=== PATIENT | female | born 1940 | race Caucasian/White ===

== ENCOUNTER 2017-07-19 19:15 | Observation (INO) ==
[2017-07-19] MEDS ORDERED: NS 500 ML IV ONE (20:30)
[2017-07-19] MEDS ORDERED: SALINE FLUSH 10ml SYRINGE IVF PRN (20:30)
--- NOTE | 2017-07-19 21:22 | Emergency Department Report ---
Asthma HPI - General Chief Complaint: Weakness Stated Complaint: dizzy/light headed Time Seen by Provider: 07/19/17 20:30 Source: patient, RN notes reviewed, old records reviewed Mode of arrival: ambulatory Limitations: no limitations - History of Present Illness HPI Narrative: 76yo woman presents to the ER for dizziness. Pt has had these sx previously; she was dx'ed with anemia at that time. Pt was admitted to this facility one week ago and given a blood transfusion; this helped her sx. Pt has had a thorough work up since then; pt has an RCC. She is set up for a partial nephrectomy in 4 days. complaint: other (dizziness) Onset (ago): day(s) Severity: similar to prior Context: other (RCC and prior anemia) - Related Data Home Medications Medication Instructions Recorded Confirmed Lisinopril 30 mg PO DAILY #0 03/10/16 07/19/17 Loratadine [Claritin] 10 mg PO DAILY PRN 05/31/17 07/19/17 Metformin [Glucophage] 500 mg PO DAILY 05/31/17 07/19/17 Pravastatin [Pravachol] 40 mg PO HS 05/31/17 07/19/17 Melatonin Tab [Melatonin] 1 tab PO HS PRN 06/01/17 07/19/17 Amlodipine Besylate [Norvasc] 5 mg PO QDRHS 07/13/17 07/19/17 Previous Rx's Medication Instructions Recorded Ascorbic Acid [Vitamin C] 500 mg PO WB tab 06/01/17 Ferrous Sulfate [Feosol] 324 mg PO WB tab 06/01/17 Prochlorperazine Maleate 10 mg PO Q6-8HR PRN #30 tab 07/13/17 [Compazine] Allergies Allergy/AdvReac Type Severity Reaction Status Date / Time codeine Allergy Intermediate ITCHING Verified 07/19/17 20:30 Review of Systems All systems: reviewed and negative except as stated Constitutional: Reports: as per HPI, weakness. Denies: fever, chills, weight change, night sweats Genitourinary: Reports: as per HPI, hematuria. Denies: urgency, dysuria, frequency, discharge, abnormal menses, dyspareunia, genital lesions PFS Patient Stated Medical History Cerebrovascular Accident No Paralysis No Seizures No Syncope No Hypertension Yes Asthma No Bronchitis No Chronic Obstructive Pulmonary No Disease (COPD) Pneumonia No Pulmonary Edema No Pulmonary Embolism No Sleep Apnea No Tuberculosis No Other Respiratory No Diabetes Mellitus Type 2 Yes: oral med controlled Gastroesophageal Reflux Yes: takes med prn Disease Ulcer Yes Other Yes: KIDNEY CA Anemia Yes Osteoarthritis No Other Musculoskeletal Yes: raynauds Blood Transfusions Yes: no reaction Other Yes: anemia currently Depression No Infertility Yes Post Menopausal Yes Other Reproductive Yes: post-menopausal bleeding-[facility] Medical History (Last Updated 06/16/17 @ 12:01 by Beryl Tovar APRN) Diabetes (Acute Medical) HTN (hypertension) (Acute Medical) Iron deficiency anemia (Acute Medical) Medical History Updates: Hypertension. Type 2 Diabetes. Hypercholesterolemia. ? GERD Surgical History: Exploratory Laparoscopic at age 37- Due to fertility problems. -hysterscope D&C 06/01/2017 Family History: Family History (Last Updated 06/16/17 @ 12:09 by Beryl Tovar APRN) Mother Heart failure High blood pressure Diabetes Son Cancer of prostate Father High blood pressure Heart failure Family History Updates: Father-heart disease, hypertension. Mother-heart disease, diabetes, hypertension. Sister-diabetes - Social History Smoking status: Never smoker Substance use type: does not use Alcohol intake frequency: does not drink Housing: house Current occupational status: retired Current residence: Apartment/Private Home Physical Exam - Limitations Limitations: no limitations - General General appearance: alert, in no apparent distress - Normal Exams: Head:: Normocephalic without trauma Eyes:: Pupils are PERRLA w/ EOMI, No scleral icterus, irritation, or foreign bodies noted ENMT:: No facial trauma, nasal exudates, pharyngeal erythema, or exudates are noted Neck:: Full range of motion, without adenopathy Chest/Respirations:: Clear all munoz, with good airflow, and symmetry bilaterally Cardiovascular:: Regular rate and rhythm, without murmur or gallop, Pulses 2+ all extremities Abdomen:: Bowel sounds positive, soft, non-tender, non-distended, no hepatosplenomegaly Lymphatic:: No lymphadenopathy Musculoskeletal:: No tenderness, or deformity noted Integumentary:: No rashes, hives, or bruising noted Neurological:: Patient is alert, and oriented Psychiatric:: Patient exhibits, appropriate attention - Skin Skin exam: Present: pallor Course - Consultations Consultation #1: Eduardo Telemed: Will admit for obs and transfusion. Time: 22:19 Vital Signs Temperature 98 F 07/19/17 19:18 Pulse Rate 95 07/19/17 19:18 Respiratory Rate 20 07/19/17 19:18 Blood Pressure 140/60 H 07/19/17 19:18 Pulse Oximetry 98 07/19/17 19:18 Temperature 98 F 07/19/17 19:18 Pulse Rate 81 07/19/17 21:00 Respiratory Rate 17 07/19/17 21:00 Blood Pressure 147/59 H 07/19/17 21:00 Pulse Oximetry 100 07/19/17 21:00 Dyspnea - MDM Narrative Medical decision making narrative: Pt with recurrent anemia. Will admit for obs and transfusion, in anticipation of surgery to correct her blood loss. - Differential Diagnosis Differential diagnosis: Likely: Pneumonia, COPD exacerbation, Foreign body in trachea (Anemia) - Medical Records Attestation: I reviewed the patient's medical records. - Lab Data Attestation: I reviewed the patient's lab results. Result diagrams: 07/20/17 06:03 07/20/17 06:03 Lab Results 07/19/17 07/19/17 07/19/17 Range/Units 20:43 20:43 20:53 WBC 13.7 H (4.5-11.0) T/MM3 RBC 3.46 L (4.00-5.20) M/MM3 Hgb 7.5 L (12-16) GM/DL Hct 24.4 L (36-46) % MCV 70.5 L (80-100) UM3 MCH 21.7 L (26-34) UUG MCHC 30.7 L (31-37) GM/DL RDW Std Deviation 46.1 (36.9-50.2) FL Plt Count 548 H (130-400) T/MM3 MPV 9.0 L (9.4-12.4) UM3 Immature Gran % (Auto) 0.3 (0.0-0.5) % Neut % (Auto) 76.1 H (33-66) % Lymph % (Auto) 14.7 L (23-45) % [place] % (Auto) 7.5 (0-9.0) % Eos % (Auto) 1.2 (0-4) % Baso % (Auto) 0.2 (0-2) % Neut # (Auto) 10.4 H (1.8-7.7) T/MM3 Lymph # (Auto) 2.0 (1-4.8) T/MM3 [place] # (Auto) 1.0 H (0-0.8) T/MM3 Eos # (Auto) 0.2 (0-0.5) T/MM3 Baso # (Auto) 0.0 (0-0.2) T/MM3 Abs Immat Gran (auto) 0.04 H (0.00-0.03) T/MM3 Turbidity < 20 (0-20) Sodium 137 (134-144) MEQ/L Potassium 4.9 (3.6-5) MEQ/L Chloride 100 (98-107) MEQ/L Carbon Dioxide 21 L (22-30) MEQ/L Anion Gap 16 H (5-15) meq/L BUN 38.0 H (7-17) MG/DL Creatinine 1.4 H (0.7-1.2) mg/dL GFR Calculation 37 BUN/Creatinine Ratio 27 H (6-26) RATIO Glucose 132 H (65-110) MG/DL Calculated Osmolality 275 (261-280) MOSM/KG Calcium 9.7 (8.4-10.2) MG/DL Icterus Index < 2 (0-7) Troponin I < 0.012 (0-0.12) ng/ml Specimen Hemolysis 37 H (0-25) Ur Collection Type Urine, void-cc/notcc Urine Color Yellow (YELLOW) Urine Clarity Clear Urine pH 5.5 (5.0-8.0) Ur Specific [place] 1.015 (1.015-1.025) Urine Protein Negative (NEGATIVE) Urine Glucose (UA) Negative (NEGATIVE) Urine Ketones Negative (NEGATIVE) Urine Occult Blood 3+ A (NEGATIVE) Urine Nitrate Negative (NEGATIVE) Urine Bilirubin Negative (NEGATIVE) Urine Urobilinogen 0.2 (NORMAL) EU/DL Ur Leukocyte Esterase Trace A (NEGATIVE) Urine RBC 5-10 H (0-3) /HPF Urine WBC 3-5 (0-5) /HPF Urine Bacteria 1+ H (NEGATIVE) Hyaline Casts 0-1 /LPF Ur Culture Indicated? Cult not indicated - Radiology Data Attestation: I reviewed the patient's radiology results. CXR: No acute CT pathology. CT Renal (July 09): Findings: The lung bases are grossly clear. Noncontrast images show no evidence of right-sided renal stone disease. There are multiple calcifications seen within the upper pole of the left kidney. The left kidney is significantly distorted with the upper half of the kidney replaced by a large heterogeneously enhancing centrally necrotic mass measuring 13.7 cm craniocaudally, 10.7 cm transversely and 10.4 cm anteroposteriorly. No obvious tumor invasion into the left renal vein. Postcontrast images show no enhancing bladder or right-sided renal masses. The liver enhances normally. No liver mass or bile duct dilatation. The gallbladder is contracted. The spleen, pancreas and adrenal glands are within normal limits. Mild motion artifact on the postcontrast sequence. No pathologic mesenteric or retroperitoneal lymphadenopathy appreciated. There are small left periaortic nodes. The largest on axial image #41 measures 0.6 cm in short axis. Uterus and ovaries are unremarkable. No free fluid. No bowel obstruction. There is some soft tissue stranding in the left paracolic gutter and splenic flexure of the colon that is most likely related to the large tumor. Bone windows show no discrete lytic or blastic osseous lesions. Delayed postcontrast images show excretion of contrast from both renal collecting systems. No definite ureteral or bladder filling defects. Impression: Very large left renal mass measuring over 13 cm in size most likely representing a renal cell carcinoma. Urothelial cell carcinoma is the other consideration. Disposition Clinical Impression: Anemia Qualifiers: Anemia type: iron deficiency Iron deficiency anemia type: chronic blood loss Qualified Code(s): D50.0 - Iron deficiency anemia secondary to blood loss ( chronic) Disposition: 02 To [facility] [place] Condition: Stable - Seen By: physician
[2017-07-19] MEDS ORDERED: ONDANSETRON 4 MG/2 ML INJECTION IVP PRN (23:06)
[2017-07-19] MEDS ORDERED: INSULIN ASPART 100unit/ml INJECTION SQ PRN (23:06)
[2017-07-19] MEDS ORDERED: AMLODIPINE 5 MG TABLET PO SCH (23:06)
[2017-07-19] MEDS ORDERED: ACETAMINOPHEN 325 MG TABLET PO PRN (23:06)
[2017-07-19] MEDS ORDERED: NS FLUSH BAG 500ml IV PRN (23:06)
[2017-07-19] MEDS ORDERED: MORPHINE SULFATE 4mg INJECTION IVP PRN (23:06)
[2017-07-19 23:14] VITALS: BMI 26.4
[2017-07-19] MEDS: D5-1/2NS 1,000 ML IV SCH (23:31)
--- NOTE | 2017-07-20 02:09 | History & Physical Report ---
History of Present Illness Date: 07/20/17 Chief complaint: weak and dizzi HPI: This is a 76 y/o female with recent diagnosis of renal cell carcinoma who is scheduled for a partial nephrectomy in [place] this coming Wednesday. The patient has had ongoing problems with anemia. Apparently transfused 1 month ago. The patient has increased weakness and fatigue and presents to the ED tonight for evaluation. In the ED her Hg is discovered to have dropped to 7.5. Given her sx it was decided to admit and tx one unit of blood. Additionally the pateint would appear to have a mild UTI based on UA results. Review of Systems Review of systems: no headache, no change in vision, no fever, chills or sweats, profound weakness and dizziness with any activity, no chest pain, cough is at times productive clear sputum, no abdomen pain, no nausea/vomiting, bowel movments normal without blood, no increased edema to legs, no focal neuro complaints. 12 point ROS otherwise negative except for outlined above. Past Medical History Medical History: Medical History (Last Updated 06/16/17 @ 12:01 by Beryl Tovar APRN) Diabetes HTN (hypertension) Iron deficiency anemia Medical History Updates: Hypertension. Type 2 Diabetes. Hypercholesterolemia. ? GERD. renal cell carcinoma Surgical History: Exploratory Laparoscopic at age 37- Due to fertility problems. 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 Current residence: Apartment/Private Home Medications Home Medications Medication Instructions Recorded Confirmed Type Lisinopril 30 mg PO DAILY #0 03/10/16 07/19/17 History Loratadine [Claritin] 10 mg PO DAILY PRN 05/31/17 07/19/17 History Metformin [Glucophage] 500 mg PO DAILY 05/31/17 07/19/17 History Pravastatin [Pravachol] 40 mg PO HS 05/31/17 07/19/17 History Ascorbic Acid [Vitamin C] 500 mg PO WB tab 06/01/17 07/19/17 Rx Ferrous Sulfate [Feosol] 324 mg PO WB tab 06/01/17 07/19/17 Rx Melatonin Tab [Melatonin] 1 tab PO HS PRN 06/01/17 07/19/17 History Amlodipine Besylate [Norvasc] 5 mg PO QDRHS 07/13/17 07/19/17 History Prochlorperazine Maleate 10 mg PO Q6-8HR PRN #30 tab 07/13/17 07/19/17 Rx [Compazine] Allergies Allergy/AdvReac Type Severity Reaction Status Date / Time codeine Allergy Intermediate ITCHING Verified 07/19/17 20:30 Exam Vital Signs: Temperature 96.6 F L 07/19/17 23:10 Pulse Rate 85 07/19/17 23:10 Respiratory Rate 12 07/19/17 23:10 Blood Pressure 134/59 07/19/17 23:10 Pulse Oximetry 98 07/19/17 23:10 Telemetry Rhythm: Sinus Rhythm Height/Weight/BMI: Height 1.65 m Weight 71.9 kg Body Mass Index 26.4 - Constitutional Present: mild distress, well nourished, well developed, average body habitus, cooperative - Routine HEENT Exam Head: Present: normocephalic, atraumatic Eye: Present: EOMI ENT: Present: mucous membranes dry - Routine Neck Exam Present: supple - Routine Respiratory Exam Present: CTA bilaterally - Routine Cardiovascular Exam Present: RRR, no murmur - Routine Abdominal Exam Present: soft, normoactive bowel sounds, non distended, non tender - Routine Extremities Exam Present: no edema - Routine Back/Spine/Pelvis Exam Back/Spine: Present: full ROM - Routine Skin Exam Present: intact, dry - Routine Neurological Exam Present: alert, oriented X3, CN II-XII intact, moving all extremities, normal tone, normal speech. Absent: motor deficit - Routine Psychiatric Exam Present: normal affect, normal thought process Results - Labs CBC & Chem 7: 07/19/17 20:43 07/19/17 20:43 Labs: reviewed and will be discussed below EKG: sinus without ischemic changes pCXR with atelectasis right base Assessment and Plan (1) Anemia Current visit: Yes Status: Acute (2) Renal cell carcinoma Current visit: Yes Status: Acute (3) CKD stage 3 secondary to diabetes Current visit: Yes Status: Acute (4) DM type 2 (diabetes mellitus, type 2) Current visit: Yes Status: Acute (5) UTI (urinary tract infection) Current visit: Yes Status: Acute Assessment and Plan: 1. anemia acute POA: secondary to ongoing hematuria, renal ds. patient is symptomatic with weakness and dizziness. Similar sx were tx in the past. 1 unit only 2. UTI acute POA: rocephpin, adjust for cx results 3. renal cell carcinoma acute POA: scheduled for surgery Wednesday 4. DM2 chronic POA: correction plan 5. CKD3 present on admission: fluids and follow labs 6. DVT ppx; SCD, DVT Prophylaxis: SCD's Resuscitation Status: Full Code - Time spent with patient Time with patient PN: 35 minutes - Physician Narrative Physician: Beverley Sol MD Narrative: Date: 07/20/17 Time: 0206 Hospital Course Summary Disclaimer: The visit summary below is not to be considered part of the above Progress Note.
[2017-07-20 07:17] VITALS: BP 122/51; PULSE 77; RESP 18; TEMP 98; O2SAT 99
--- NOTE | 2017-07-20 07:27 | XRay Report ---
Indication: Dyspnea PROCEDURE: XR chest 1V: Encounter: Initial Comparison: None FINDINGS: The lungs are clear. There is no abnormal airspace opacity, pleural effusion or pneumothorax identified. The heart size, pulmonary vasculature and mediastinum are within normal limits. No significant skeletal abnormality is seen. IMPRESSION: No acute cardiopulmonary abnormality. .
[2017-07-20] MEDS ORDERED: AMLODIPINE 5 MG TABLET PO SCH ×2 (09:00→21:00)
[2017-07-20] MEDS ORDERED: POLYETHYL GLYCOL 3350 17gm PACKET PO SCH (09:00)
[2017-07-20] MEDS ORDERED: LISINOPRIL 30 MG TABLET PO SCH (09:00)
[2017-07-20] MEDS ORDERED: CEFTRIAXONE 1 G in NS 100 ML IV SCH (09:00)
[2017-07-20] MEDS: D5-1/2NS 1,000 ML IV SCH (10:19)
--- NOTE | 2017-07-20 13:30 | Internal Med History&Physical ---
Internal Medicine HPI History of present illness: came in overnight d/t fatigue and dizziness. Pt reports she has had those sx's for a few months now but they got a little worse. Pt has had been having her anemia work up for the last few months and has gone through multiple specialists and procedures and it was finally figured out as hematuria caused by RCC. Pt has surgery this week and has a pre-op apt tomorrow and pt would really like to go home. Pt reports she has had a transfusion about a month ago when her Hgb dropped to around 6.5 but than she had been doing okay. Currently pt feels good and reports she's back to baseline after the transfusion. Pt denies any f/c, cp or sob. Denies any urinary sx's. Please see previous H&P for complete H&P HPI from overnight: This is a 76 y/o female with recent diagnosis of renal cell carcinoma who is scheduled for a partial nephrectomy in [place] this coming Wednesday. The patient has had ongoing problems with anemia. Apparently transfused 1 month ago. The patient has increased weakness and fatigue and presents to the ED tonight for evaluation. In the ED her Hg is discovered to have dropped to 7.5. Given her sx it was decided to admit and tx one unit of blood. Additionally the pateint would appear to have a mild UTI based on UA results. Review of Systems Review of systems: 10 point ros negative other than what is noted in HPI PFSH Patient Stated Medical History Cerebrovascular Accident No Hypertension Yes Sleep Apnea No Diabetes Mellitus Type 2 Yes: oral med controlled Gastroesophageal Reflux Yes: takes med prn Disease Ulcer Yes Other Yes: KIDNEY CA Anemia Yes Other Musculoskeletal Yes: raynauds Blood Transfusions Yes: no reaction Other Yes: anemia currently Depression No Infertility Yes Post Menopausal Yes Other Reproductive Yes: post-menopausal [facility] Medical History (Last Updated 06/16/17 @ 12:01 by Beryl Tovar APRN) Diabetes (Acute Medical) HTN (hypertension) (Acute Medical) Iron deficiency anemia (Acute Medical) Medical History Updates: Hypertension. Type 2 Diabetes. Hypercholesterolemia. ? GERD. renal cell carcinoma Surgical History: Exploratory Laparoscopic at age 37- Due to fertility problems. -hysterscope D&C 06/01/2017 Family History: Family History (Last Updated 06/16/17 @ 12:09 by Beryl Tovar APRN) Mother Heart failure High blood pressure Diabetes Son Cancer of prostate Father High blood pressure Heart failure Family History Updates: Father-heart disease, hypertension. Mother-heart disease, diabetes, hypertension. 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 Current residence: Apartment/Private Home Medications Home Medications Medication Instructions Recorded Confirmed Type Lisinopril 30 mg PO DAILY #0 03/10/16 07/19/17 History Loratadine [Claritin] 10 mg PO DAILY PRN 05/31/17 07/19/17 History Metformin [Glucophage] 500 mg PO DAILY 05/31/17 07/19/17 History Pravastatin [Pravachol] 40 mg PO HS 05/31/17 07/19/17 History Ascorbic Acid [Vitamin C] 500 mg PO WB tab 06/01/17 07/19/17 Rx Ferrous Sulfate [Feosol] 324 mg PO WB tab 06/01/17 07/19/17 Rx Melatonin Tab [Melatonin] 1 tab PO HS PRN 06/01/17 07/19/17 History Amlodipine Besylate [Norvasc] 5 mg PO QDRHS 07/13/17 07/19/17 History Prochlorperazine Maleate 10 mg PO Q6-8HR PRN #30 tab 07/13/17 07/19/17 Rx [Compazine] Allergies Allergy/AdvReac Type Severity Reaction Status Date / Time codeine Allergy Intermediate ITCHING Verified 07/19/17 20:30 Exam Vital signs: Temperature 98.0 F 07/20/17 07:00 Pulse Rate 77 07/20/17 08:05 Respiratory Rate 18 07/20/17 07:00 Blood Pressure 122/51 07/20/17 07:00 Pulse Oximetry 99 07/20/17 07:00 - Constitutional no acute distress - Routine HEENT Exam Head: Present: normocephalic, atraumatic - Routine Respiratory Exam Present: CTA bilaterally. Absent: wheezes - Routine Cardiovascular Exam Present: RRR, no murmur - Routine Abdominal Exam Present: soft, normoactive bowel sounds - Routine Extremities Exam Present: no edema. Absent: cyanosis, clubbing - Routine Skin Exam Present: intact, dry. Absent: cyanosis, erythema - Routine Neurological Exam Present: alert, oriented X3 - Routine Psychiatric Exam Present: normal affect, normal thought process Internal Medicine Results - Labs CBC & Chem 7: 07/20/17 06:03 07/20/17 06:03 Labs: Short CBC 07/20/17 Range/Units 06:03 WBC 12.0 H (4.5-11.0) T/MM3 Hgb 8.9 L D (12-16) GM/DL Hct 27.9 L D (36-46) % Plt Count 538 H (130-400) T/MM3 BMP 07/20/17 06:03 Sodium 141 Potassium 4.6 Chloride 104 Carbon Dioxide 24 BUN 28.0 H Creatinine 1.2 D Glucose 145 H Calcium 9.8 Assessment and Plan - Assessment and Plan (1) Anemia Current visit: Yes Status: Acute (2) Renal cell carcinoma Current visit: Yes Status: Acute (3) CKD stage 3 secondary to diabetes Current visit: Yes Status: Acute (4) DM type 2 (diabetes mellitus, type 2) Current visit: Yes Status: Acute - Assessment and Plan Chronic Anemia 2/2 Hematuria 2/2 RCC -Hgb improved after transfusion -Pt has surgery later this week for RCC RCC -Surgery this Wednesday, pre-op apt tomorrow
--- NOTE | 2017-07-20 13:38 | Discharge Summary ---
Discharge Summary- Blank Discharge Summary: Pt came in with sx's that were likely d/t dehydration and anemia. Pt got IV fluids and 1 unit of pRBC and felt much better. Pt has had full work up for her anemia and is thought to be 2/2 hematuria from RCC. Pt has surgery for RCC this wednesday and has a pre-op apt tomorrow that she really wants to make. Since pt is back to baseline and is doing well and Hgb is improved, will discharge today. Pt will have labs checked tomorrow at pre-op eval. Pt will return to ED if any sx's return.
== END 2017-07-20 14:15 | disposition home or self-care (01) ==
LOC: EDHOLD 19:15 → ED 19:15 → MED 23:03
PROVIDERS: ADMIT Emergency Medicine; ATTEND Internal Medicine